=== PATIENT | male | born 1990 | race Caucasian/White ===

== ENCOUNTER 2020-09-22 13:47 | Emergency (ER) | payer MEDICARE, MEDICAID, SELFPAY ==
[2020-09-22 13:58] VITALS: BP 129/89; BP 149/95; PULSE 68; RESP 18; TEMP 36.8; O2SAT 98; BMI 38.0
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
[2020-09-22] MEDS: Nicotine 14 MG PATCH.TD24 TRANSDERMA (14:41)
[2020-09-22] MEDS: LORazepam 1 MG TABLET PO (14:41)
[2020-09-22 15:32] LABS: Amphetamine Screen Urine Not Detected (Not Detect); Barbiturates, Urine Not Detected (Not Detect); Benzodiazepines Screen Urine POSITIVE (Not Detect); Cannabinoid Screen Urine POSITIVE (Not Detect); Cocaine Screen Urine Not Detected (Not Detect); Opiate Screen Urine Not Detected (Not Detect); Phencyclidine Screen Urine Not Detected (Not Detect)
[2020-09-22 15:53] LABS: Ethanol < 10 mg/dL
[2020-09-22 15:58] LABS: Acetaminophen LAB < 1 mcg/mL (<30); Salicylate < 5.0 mg/dL (15-30)
--- NOTE | 2020-09-22 16:49 | PC.NURSE ---
NISHI faxed and called. ETA unknown, sometime later tonight .
--- NOTE | 2020-09-22 17:11 | PC.NURSE ---
Pt on the phone at current, calm, no signs of distress. Waiting to be seen by [facility].
[2020-09-22] MEDS: Ibuprofen 600 MG TABLET PO (17:48)
[2020-09-22 18:05] LABS: COVID-19 Test Negative (Negative)
[2020-09-22] MEDS: ALPRAZolam 0.5 MG TABLET 1 MG PO (18:49)
--- NOTE | 2020-09-22 18:51 | PC.NURSE ---
Pt refused scheduled dose of Vraylar, states that it makes him agitated.
[2020-09-22] MEDS: OXcarbazepine 300 MG TABLET 600 MG PO (21:45)
[2020-09-22] MEDS: OXcarbazepine 300 MG TABLET PO (21:45)
== END 2020-09-22 22:41 | disposition home or self-care (01) ==
PROVIDERS: Nurse Practitioner Family; Emergency Provider Internal Medicine; PCP Nurse Practitioner Family
DX: F31.9 Bipolar disorder, unspecified (principal); F41.9 Anxiety disorder, unspecified; R45.851 Suicidal ideations; S41.112A Laceration without foreign body of left upper arm, initial encounter; X78.9XXA Intentional self-harm by unspecified sharp object, initial encounter; M79.672 Pain in left foot; F12.90 Cannabis use, unspecified, uncomplicated; Z20.822 Contact with and (suspected) exposure to COVID-19; Y93.9 Activity, unspecified; Y92.019 Unspecified place in single-family (private) house as the place of occurrence of the external cause; Y99.9 Unspecified external cause status; Z79.899 Other long term (current) drug therapy
CPT/HCPCS: 36415; 80143; 80179; 80307; 80320; 87635; 99284

== ENCOUNTER → 2022-06-22 08:03 | Outpatient (BNVA) | payer MEDICARE, MEDICAID, SELFPAY | PROVIDERS: PCP Nurse Practitioner Family; Visit Provider Physician Assistant | DX: E66.01 Morbid (severe) obesity due to excess calories (principal); Z68.41 Body mass index [BMI] 40.0-44.9, adult | CPT/HCPCS: 99202 ==